=== PATIENT | male | born 1960 | race Caucasian/White ===

== ENCOUNTER 2024-06-14 06:18 | Observation (INO) | payer OTHER ==
[2024-06-09 10:22] LABS: Absolute Basophils 0.1 K/uL (0-0.5); Absolute Eosinophils 0.2 K/uL (0-0.5); Absolute Lymphocytes (CBC) 1.8 K/uL (0.7-4.9); Absolute Monocytes 0.7 K/uL (0.1-1.3); Absolute Neutrophil 5.2 K/uL (1.8-8.0); Basophils % 0.8 % (0-1.3); Eosinophils % 2.8 % (0-4.4); Hematocrit 44.3 % (39.6-49.0); Hemoglobin 14.9 g/dL (13.6-17.9); Lymphocytes % 22.4 % (15.3-44.8); MCH 32.2 pg (27.0-35.0); MCHC 33.7 g/dL (32.0-36.0); MCV 95.4 fL (80-100); MPV 8.9 fL (7.6-11.3); Monocytes % 8.3 % (3.3-12.3); Neutrophils % 65.7 % (41.7-73.7); Nucleated Red Blood Cells % 0.1 % (0-0); Platelets 151 thou/uL (152-406); RBC Red Blood Cell Count 4.64 M/uL (4.33-5.43); Red Cell Distribution Width 14.9 % (12.1-15.2)
[2024-06-09 10:25] LABS: Specific Gravity 1.016 (1.005-1.030); Urine Bilirubin NEGATIVE (Negative); Urine Blood Negative (Negative); Urine Clarity Clear (Clear); Urine Color Light-Yellow (Yellow); Urine Glucose NEGATIVE (Negative); Urine Ketones NEGATIVE (Negative); Urine Microscopic Reflex YN NO UMIC; Urine Nitrite NEGATIVE (Negative); Urine Protein NEGATIVE (Negative); Urine Urobilinogen Normal (Normal); Urine pH 6.5 (5.0-7.0)
[2024-06-09 10:37] LABS: Albumin 3.7 g/dL (3.4-5.0); Albumin/Globulin Ratio 1.2 (1.1-1.8); Bilirubin Total 0.6 mg/dL (0.2-1.0); Globulin 3.1 g/dL (2.3-3.5); Protein, Total 6.8 g/dL (6.4-8.2)
[2024-06-09 10:38] LABS: PT Prothrombin Time 10.7 SECONDS (9.4-12.5)
[2024-06-09 10:39] LABS: PTT, Activated Partial Thromb 33.2 SECONDS (24.3-36.9); Protime INR 0.95
--- NOTE | 2024-06-09 12:25 | RAD REPORT ---
EXAM DESCRIPTION: RAD - Chest Pa And Lat (2 Views) - 06/09/2024 10:29 am CLINICAL HISTORY: Pre op pending hip arthroplasty. COPD. History of triple bypass COMPARISON: CHEST PA AND LAT 2 VIEW dated 01/30/2011; CHEST PA AND LAT 2 VIEW dated 11/22/2004 TECHNIQUE: PA and lateral views of the chest were obtained. FINDINGS: New low-density nodules or focal opacity in the center measuring 2.5 cm. Heart size is nor mal and central vasculature is within normal limits. Sequelae of CABG are noted. . No pleural effusio n or pneumothorax seen. No acute bony finding noted. IMPRESSION: Suspected knee of nodular opacity in the central right midlung on the AP view. This can be further chest CT on non emergent basis.
[2024-06-14] MEDS: TRANEXAMIC ACID 1,000 MG/10 ML VIAL IV ONE (06:25)
[2024-06-14] MEDS: BUPIVACAINE 0.75% (PF) 2 ML SP ONE (06:30)
[2024-06-14] MEDS: NA CHLORIDE 0.9% 1,000 ML ONE ×2 (06:40→08:00)
[2024-06-14] MEDS: MORPHINE SULFATE/PF 1 MG/ML (10 ML AMP) ONE (06:44)
[2024-06-14] MEDS: SUCCINYLCHOLINE 20 MG/ML (10 ML) IV ONE (06:45)
[2024-06-14] MEDS ORDERED: MIDAZOLAM HCL 2 MG/2 ML INJ ONE (06:47)
[2024-06-14] MEDS ORDERED: ONDANSETRON 4 MG/2 ML VIAL ONE (06:47)
[2024-06-14] MEDS ORDERED: propofoL 200 MG/20 ML VIAL IV ONE (06:47)
[2024-06-14] MEDS ORDERED: LIDOCAINE 2% MPF 5 ML VIAL ONE (06:47)
[2024-06-14] MEDS ORDERED: FENTANYL CITR 100 MCG/2 ML ONE (06:47)
[2024-06-14] MEDS: ACETAMINOPHEN 500 MG TAB ONE (06:49)
[2024-06-14] MEDS: CELECOXIB 100 MG CAPSULE ONE (06:49)
[2024-06-14] MEDS: GABAPENTIN 100 MG CAP ONE (06:49)
[2024-06-14] MEDS: Oxycodone HCl/Acetaminophen 5/325 MG TAB ONE (06:50)
[2024-06-14] MEDS ORDERED: LIDOCAINE 1% MPF 5 ML VIAL ONE (06:57)
[2024-06-14] MEDS ORDERED: dexAMETHasone 4 MG/ML VIAL ONE (07:31)
[2024-06-14] MEDS ORDERED: EPHEDRINE SULF 50 MG/ML VIAL ONE (07:32)
[2024-06-14] MEDS: CEFAZOLIN SODIUM 2 GM/VIAL ONE (07:42)
[2024-06-14] MEDS ORDERED: Phenylephrine HCl 10 MG/ML 1 ML VIAL ONE (08:05)
[2024-06-14] MEDS ORDERED: GLYCOPYRROLATE 0.2 MG/ML SYR ONE (08:05)
[2024-06-14] MEDS ORDERED: NS 0.9% VIAL 10 ML ONE (08:05)
--- NOTE | 2024-06-14 09:03 | RAD REPORT ---
EXAM DESCRIPTION: RAD - Hip Left 1 View - 06/14/2024 8:54 am CLINICAL HISTORY: TOTAL HIP COMPARISON: No comparisons FINDINGS: Left hip intraoperative projection is submitted. Hardware is in expected alignment. Latera l surgical defects seen.
[2024-06-14] MEDS ORDERED: DOCUSATE NA 100 MG CAP PO PRN (09:05)
[2024-06-14] MEDS ORDERED: ONDANSETRON 4 MG/2 ML VIAL IV PRN (09:05)
--- NOTE | 2024-06-14 09:05 | P.BOP ---
Preoperative diagnosis: left hip arthritis Postoperative diagnosis: same Primary procedure: left total hip arthoplasty Estimated blood loss: 100ccs Anesthesia: General Transferred to: Recovery Room Condition: Good
[2024-06-14 09:35] LABS: Hematocrit 42.8 % (39.6-49.0); Hemoglobin 14.2 g/dL (13.6-17.9)
[2024-06-14 10:11] VITALS: O2SAT 98
[2024-06-14 11:02] VITALS: BMI 25.4
--- NOTE | 2024-06-14 12:06 | P.CNS ---
Date of Consult: 06/14/24 (\) Reason for Consult: medical management Requesting Physician: Sonu Hudson History of Present Illness: 63 yo M, PMH: CAD s/p CABG (January 2024), Hypertension, Hyperlipidemia, NIDDM2, tobacco dependance, COPD who underwent planned left total hip arthroplasty today by Dr. Hudson for severe arthritis. Reportedly uncomplicated procedure. Patient is seen several hours after surgery - reportedly had spinal + general anesthesia. Ambulating already with PT. Reports plans are dc home with home health/PT. Currently without any new/worsening issues. Unable to recall all home meds, but states will get list to nursing staff. Currently without shortness of breath / dyspnea, no nausea/vomiting, no diarrhea, no abd pain. Currently is pain free, without radiation. no aggravating/alleviating factors at this time; suspect secondary to spinal anesthesia Allergies morphine Adverse Reaction (Verified 06/09/24 09:42) Itching Home Medications: Amlodipine Besylate 10 mg PO DAILY 06/09/24 Apixaban [Eliquis] 5 mg PO DAILY 06/09/24 Aspirin [Aspirin EC 325 MG] 325 mg PO DAILY 06/09/24 Budesonide/Formoterol Fumarate [Symbicort 160-4.5 Mcg Inhaler] 1 puff IH BEDTIME PRN PRN 06/09/24 Dapagliflozin Propanediol [Farxiga] 10 mg PO DAILY 06/09/24 Hydrocodone 10/APAP 325 [[place] 10/325] 2 tab PO Q8HP PRN 06/09/24 Losartan Potassium 100 mg PO DAILY 06/09/24 Metformin HCl [Glucophage] 500 mg PO BIDWM 06/09/24 Pitavastatin Calcium [Livalo] 4 mg PO DAILY 06/09/24 Tamsulosin HCl 0.4 mg PO BID 06/09/24 Thyroid 30 mg PO DAILY 06/09/24 bisoproloL fumarate [Bisoprolol Fumarate] 10 mg PO DAILY 06/09/24 hydroCHLOROthiazide [Hydrochlorothiazide*] 12.5 mg PO DAILY 06/09/24 - Past Medical/Surgical History Diabetic: Yes -: HTN -: CAD -: NIDDM -: Smoker -: High cholesterol -: diabetes -: COPD -: triple bypass 01/2024 -: back surgery 2015 -: hernia repair - Family History Father History Unknown: Yes Mother History Unknown: Yes - Social History Smoking Status: Current every day smoker Alcohol use: No CD- Drugs: No Caffeine use: No Place of Residence: Home Review of Systems 10-point ROS is otherwise unremarkable Physical Examination Temp Pulse Resp BP Pulse Ox 97.4 F 78 16 136/82 98 06/14/24 09:41 06/14/24 10:41 06/14/24 10:41 06/14/24 10:41 06/14/24 06:50 General: Alert, In no apparent distress, Oriented x3 HEENT: EOMI, Sclerae nonicteric Neck: Supple, No LAD Respiratory: Clear to auscultation bilaterally, Normal air movement Cardiovascular: No edema, Regular rate/rhythm, No murmurs Gastrointestinal: Soft and benign, Non-distended, No tenderness Musculoskeletal: No contractures, Other (surgical dressing c/d/i) Integumentary: No rashes, No significant lesion Neurological: Normal speech, Normal affect Urinary: Glass catheter (in place) Laboratory Data (last 24 hrs) 06/14/24 09:21 Hgb 14.2 Hct 42.8 Physician Review Additional Text: Problem List: Left hip arthritis, s/p total left hip arthroplasty (06/14) hx CAD s/p CABG (January 2024) Hyperlipidemia Hypertension NIDDM2 Nicotine dependance COPD, chronic Left hip arthritis, s/p total left hip arthroplasty (06/14) underwent total left hip arthroplasty earlier this morning with Dr. Hudson (06/14) doing well post operatively pain control PT consulted to eval check H&H post surgery diet as tolerated anticipated dc home with HH/PT hx CAD s/p CABG (January 2024) Hyperlipidemia Hypertension confirm home meds, restart as appropriate NIDDM2 accu-cheks, SSI Nicotine dependance cessation advised COPD, chronic confirm home meds - states has not used scheduled inhalers regularly due to cost VTE: SCD for now. Start lovenox tomorrow morning Code: Full Dispo: per ortho. pending PT eval, anticipate home Time Spent Managing Pts care (In Minutes): 65
[2024-06-14] MEDS: CEFAZOLIN 1 GM in NA CHLORIDE 0.9% 50 ML IVPB SCH (16:59)
--- NOTE | 2024-06-14 18:04 | OP ---
Date of Procedure: 06/14/2024 Surgeon: Sonu Hudson MD Preoperative Diagnosis: Left hip severe arthritis. Postoperative Diagnosis: Left hip severe arthritis. Procedure: Left total hip arthroplasty using the Tasneem system. Estimated Blood Loss: 100 cc. Complications: There were no complications. Indications For Operation: Mr. Velasquez is a 63-year-old male who has been in severe pain. This p ain probably is coming from his left hip as well as probable contributions from his back. However, x -rays demonstrated severe osteoarthritis of the hip, which he has been suffering with for approximate ly 4 or greater years. It persists despite conservative care and risks, benefits, and alternatives t o total hip arthroplasty had been discussed with him. He states he understands things as presented, and wished to proceed. Description Of Procedure: The patient was taken to the operating room. Spinal anesthesia was obtain ed by Anesthesia staff. Following this, general anesthesia was obtained with placement of Glass by cal guardado. He was then rolled right side down with all of his bony prominences being checked and proper ly positioned using hip positioners. After this, left lower extremity was then prepped and draped in the usual sterile fashion for the procedure. After this, a standard posterior lateral approach was taken down carefully through skin only. Meticulous hemostasis being maintained using Bovie electroca utery. This led down to the fascia. A small stab wound was made in the fascia where the gluteal ten don was palpated ensuring correct position. This was then extended up till near the tip of the great er trochanter where the fibers of gluteus lula were encountered. They were then spread using fing er pressure. Following this, the sciatic nerve was protected as the Charnley was placed. The recycling director al rotators and capsule were then taken down carefully and tagged for later repair. This led down to the hip itself which was severely involved with osteoarthritis. Following this, the hip was then di slocated. A neck cut was made. The head was then sized using ring gauges. The labrum was removed a s well as any soft tissues within the acetabulum. After this, it was then sequentially reamed to a s ize 57, and did have good bleeding bone all around. There was some consideration of reaming to 59, a nd placing a 60. However, the peña were getting a little thin. Decision was made to move forward w ith the 58 cup. The 58 cup was then placed in standard fashion. It might be a little horizontal and like a little bit of the anteversion that was normally placed, however, definitely it was very solid . The attention was then turned to the femur where a box maker paperboard was used to lateralize followed by c anal-finding reamer. It was then broached up to a size 6, which appears to fit very well. X-rays we re taken which demonstrated maybe it is a little horizontal, but definitely it appears to be acceptab le. Decision was made to assess this with trials and the liner was placed, followed by the final ruby m. It was then trialed with a -2. It has a little bit of Shuck, but it is definitely fairly stable with full flexion, full adduction, and internal rotation to about 30 degrees. Decision was made to t rial with a standard now and there was no Shuck, goes easily to 90 degrees flexion, full adduction at least 45 degrees of internal rotation. It was felt that this will not necessitate any change in the position of the cup, at this point, and decision was made to proceed. The final ball was then place d. It was attached to the same area. It is stable, same directions, with no sign of impingement. A fter this, the wound was copiously irrigated and the fascia was closed in a watertight fashion using heavy Vicryl sutures. This was followed by irrigation and closure of skin using Vicryl followed by s taples. Patient was then placed in Aquacel dressing, awakened, and taken to recovery room in good co ndition. No complications. SE/MODL Voice ID: [id number] Report ID: [id number]
[2024-06-14] MEDS: ATORVASTATIN 20 MG TAB PO SCH (20:33)
[2024-06-14] MEDS: TAMSULOSIN 0.4 MG SR CAP PO SCH (20:33)
[2024-06-14] MEDS: HYDROCODONE/APAP 7.5/325 MG TAB PO PRN (22:35)
[2024-06-15 04:45] LABS: Hemoglobin 12.9 g/dL (13.6-17.9)
[2024-06-15 05:03] LABS: Anion Gap 5.7 mEq/L (5.0-15.0); Magnesium 2.1 mg/dL (1.6-2.4); Potassium 3.7 mEq/L (3.5-5.1)
[2024-06-15] MEDS: BISOPROLOL 5 MG TABLET PO SCH (08:18)
[2024-06-15] MEDS: ENOXAPARIN 40 MG/0.4 ML SQ SCH (08:19)
[2024-06-15] MEDS ORDERED: HOME MED 1 EA UNK (Pitavastatin Calcium [Livalo] 4 MG Tablet) PO SCH (09:00)
[2024-06-15] MEDS ORDERED: BISOPROLOL FUMARATE 10 MG PO SCH (09:00)
--- NOTE | 2024-06-15 12:13 | P.PN ---
Date of Service: 06/15/24 Subjective: doing well post operatively no issues overnight stable ROS: 10 point ROS as noted above, otherwise negative Physical Exam: GEN: Alert, oriented, NAD HEENT: Normal conjunctiva, sclera anicteric, CV: Regular rate and rhythm, no edema Pulm: Nonlabored respirations on room air, clear bilaterally Integumentary: surgical dressing c/d/i Neuro: Normal speech, normal affect white in place Problem List: Left hip arthritis, s/p total left hip arthroplasty (06/14) hx CAD s/p CABG (January 2024) Hyperlipidemia Hypertension NIDDM2 Nicotine dependance COPD, chronic Left hip arthritis, s/p total left hip arthroplasty (06/14) underwent total left hip arthroplasty with Dr. Hudson (06/14) doing well post operatively ambulating with PT diet as tolerated anticipated dc home with HH/PT today clear from medical standpoint hx CAD s/p CABG (January 2024) Hyperlipidemia Hypertension continue home meds NIDDM2 accu-cheks, SSI Nicotine dependance cessation advised COPD, chronic confirm home meds - states has not used scheduled inhalers regularly due to cost advised to discuss with PCP VTE: lovenox Code: Full Dispo: per ortho, anticipate home today with HH Time Spent Managing Pts Care (In Minutes): 30
[2024-06-15 12:34] VITALS: BP 141/65; TEMP 97.1
== END 2024-06-15 13:19 | disposition home health service (06) ==
LOC: OR 06:18 → 2ND 09:05
PROVIDERS: ADMIT Orthopaedic Surgery; ATTEND Orthopaedic Surgery
PROC: 0SRB0JA Replacement of Left Hip Joint with Synthetic Substitute, Uncemented, Open Approach (ICD-10-PCS; principal; 2024-06-14 07:00)
DX: M16.12 Unilateral primary osteoarthritis, left hip (principal); I25.10 Atherosclerotic heart disease of native coronary artery without angina pectoris; I10 Essential (primary) hypertension; E78.5 Hyperlipidemia, unspecified; E11.9 Type 2 diabetes mellitus without complications; J44.9 Chronic obstructive pulmonary disease, unspecified; F17.210 Nicotine dependence, cigarettes, uncomplicated; Z95.1 Presence of aortocoronary bypass graft; Z88.5 Allergy status to narcotic agent
CPT/HCPCS: 85025; 36415 ×2; 85610; 82947 ×5; 88305; 88311; 85730; 85018 ×2; 85014 ×2; 81003; 80053; 71046; 73501; 97116 ×2; 97161; 97530; 27130; C1776; A4216; J2704; J1100; J2001 ×2; J2371; J2250; J3010; J2405; J7030 ×2; J0690; 80048; 83735; 88304; G0378; G0379; J1650